=== PATIENT | male | born 1975 | race Two or more races ===

== ENCOUNTER 2020-03-23 03:41 | Emergency (ER) | payer MEDICAID ==
[~2020-03-23] VITALS: Ht 177.8 cm; Wt 87.0 kg
[2020-03-23 06:38] LABS: MEAN CORPUSCULAR HEMOGLOBIN 32.9 pg (28.0-32.0); MEAN CORPUSCULAR VOLUME 96.5 fL (80.0-94.0); MEAN PLATELET VOLUME 8.1 fl (7.4-10.4); PLATELET 117 x1000/uL (130-400); RED BLOOD CELL COUNT 3.94 mill/uL (4.7-6.1); RED CELL DISTRIBUTION WIDTH 16.1 % (11.6-14.6)
[2020-03-23 06:44] LABS: CHLORIDE 103 mEq/L (98-107)
[2020-03-23 06:48] LABS: ETHANOL BLOOD < 10 mg/dL
[2020-03-23 07:07] LABS: PROTHROMBIN TIME 10.6 sec (9.6-11.0)
[2020-03-23 07:10] LABS: CLARITY URINE CLEAR (CLEAR); COLOR URINE DARK YELLOW (YELLOW); KETONES URINE TRACE (NEGATIVE); LEUKOCYTE ESTERASE URINE NEGATIVE (NEGATIVE); NITRITE URINE NEGATIVE (NEGATIVE); OCCULT BLOOD URINE NEGATIVE (NEGATIVE); PROTEIN URINE NEGATIVE (NEGATIVE); SPECIFIC GRAVITY URINE 1.036 (1.005-1.030)
[2020-03-23 07:23] LABS: *AMPHETAMINES SCREEN URINE NEGATIVE (NEGATIVE); *BARBITURATES SCREEN URINE NEGATIVE (NEGATIVE); *BENZODIAZEPINES SCREEN URINE NEGATIVE (NEGATIVE); *COCAINE SCREEN URINE NEGATIVE (NEGATIVE); METHADONE URINE SCREEN NEGATIVE (NEGATIVE); OPIATES URINE SCREEN NEGATIVE (NEGATIVE)
[2020-03-23 07:24] LABS: CANNABINOID URINE SCREEN NEGATIVE (NEGATIVE); PHENCYCLIDINE URINE SCREEN NEGATIVE (NEGATIVE)
[2020-03-23 08:57] LABS: PLATELET ESTIMATE DECREASED
[2020-03-24] MEDS: MULTIVITAMINS,THER W-MINERALS TABLET PO SCH (09:44)
[2020-03-24] MEDS: SERTRALINE HCL 50MG TABLET PO SCH (10:30)
[2020-03-24] MEDS ORDERED: LORAZEPAM 0.5MG TABLET PO ONE (22:00)
[2020-03-25] MEDS: MULTIVITAMINS,THER W-MINERALS TABLET PO SCH (09:35)
[2020-03-25] MEDS: SERTRALINE HCL 50MG TABLET PO SCH (09:37)
[2020-03-25 11:48] VITALS: BP 110/68
== END 2020-03-25 11:50 ==
LOC: ER 03:41
DX: R45.851 Suicidal ideations (principal); F10.20 Alcohol dependence, uncomplicated; F32.9 Major depressive disorder, single episode, unspecified; I49.9 Cardiac arrhythmia, unspecified; Y90.0 Blood alcohol level of less than 20 mg/100 ml
CPT/HCPCS: 36415; 80053; 80305; 80320; 81003; 82962; 85025; 87426; 93005; 99285; G0480